=== PATIENT | male | born 1945 | race Caucasian/White ===

== ENCOUNTER 2024-03-12 16:28 | Inpatient (IN) | payer MEDICARE, BC, SELFPAY ==
[2024-03-11 22:39] VITALS: BP 126/98
--- NOTE | 2024-03-11 23:09 | ED.GENMED ---
History of Present Illness
General
Chief Complaint: Fall
Time Seen by Provider: 03/11/24 23:02
Travel History
Have you had any contact with someone who has COVID-19?: No
Do you have any symptoms of coronavirus? Fever > 100 degrees, chills, cough, shortness of breath, sore throat, loss of taste or smell, muscle aches, or headache?: No
History of Present Illness
History of Present Illness:
78 yo male w/ hx of IDDM presents to the Emergency Department for evaluation of L hip/groin pain after a fall. States that he tripped on the curb and fell, doesn't recall exactly the mechanics of the fall. Denies head strike/LOC. Not on OAC or
antiplatelets. Not able to bear weight on the L lower extremity
Review of Systems
Review of Systems
Allergies reviewed?: Yes
All Other Systems: ROS reviewed and negative except as documented in HPI and ROS
Phy Exam
Physical Exam
Physical Exam:
GEN: Well appearing, NAD, WDWN
HEENT: Oral mucosa moist, no scleral icterus
Cardiac: Regular rate
Lung: No respiratory distress, no tachypnea
MSK: No gross deformity or injuries. No shortening/external rotation of the LLE. No focal tenderness to the pelvis/groin. No crepitus with L hip ROM, which is normal in all cerda. No midline lumbar spine tenderness
Skin: Good color, no pallor or jaundice, no rashes
Neuro: AO x3, moves all extremities freely
Psych: Calm, cooperative
Course
Orders/Labs/Results
Orders:
Orders
03/11/24 23:08
Acetaminophen [Tylenol] 650 mg PO NOW STA
CR Hip - LT w/wo Pel 2-3 Vw* Urgent
Comment:
Reason For Exam: fall L hip pain
Include a pelvis x-ray?: Yes
03/12/24 00:17
CT Pelvis W/o Iv Contrast Urgent
Comment:
Reason For Exam: fall, L hip pain, neg XR
03/12/24 00:22
Ketorolac [Toradol] 30 mg IM NOW STA
03/12/24 01:50
Complete Blood Count/With Diff Urgent
Comprehensive Metabolic Panel Urgent
Vital Signs
Initial and Last Documented VS:
Initial Vital Signs
Temp Pulse Resp BP Pulse Ox
97.9 F 90 24 126/98 94
03/11/24 22:39 03/11/24 22:39 03/11/24 22:39 03/11/24 22:39 03/11/24 22:39
Last Documented Vital Signs
Temp Pulse Resp BP Pulse Ox
98.0 F 80 24 114/57 97
03/12/24 02:18 03/12/24 02:18 03/11/24 22:39 03/12/24 02:18 03/12/24 02:18
MDM/Problems Addressed
MDM/Problems Addressed:
Initial x-ray unremarkable, no evidence for hip fracture. The patient was unable to ambulate despite being given analgesics and was thus sent for CT scan which shows a suspicion for a left superior pubic rami fracture extending toward the left
acetabulum. Patient remains unable to tolerate the pain and unable to ambulate, given his advanced age will admit to the hospitalist service for orthopedic consultation and further management
*Critical Care Note
Total Time (30-74mins, 75-104mins- exclusive of procedures): Not Applicable
Update Note
Update Note:
0152: CT report reviewed, suspicion for a minor non displaced L acetabular fx extending into the superior pubic rami. Pt reassessed, pain has improved however still unable to bear weight. Will plan to admit to hospitalist for pain control/SNF. TT
message sent to Ortho skin lifter bacon, anticipate this injury will require LLE NWB
ED Attending Note
-
Portions of this chart may have been created with voice recognition software.� Occasional wrong word or��sound alike� substitutions may have occurred due to the inherent limitations of voice recognition software.
Discharge Plan
Departure
Patient Disposition: Admit
Date of Disposition: 03/12/24
Time of Disposition: 02:26
Admit to: Med/Surg
Presentation/result/management discussed w/ accepting MD/DO: Hospitalist
Discharge Problem:
Closed fracture of left superior pubic ramus
Prescriptions:
No Action
pioglitazone [Actos] 15 mg Tablet
15 mg PO DAILY
atorvastatin 80 mg Tablet
80 mg PO QPM
donepezil 10 mg Tablet
10 mg PO QPM
hydroxyzine HCl 25 mg Tablet
25 mg PO PRN PRN (Reason: unknown)
Rx Instructions:
Patient states he does not know why he takes this as needed. Per med lisst either takes 10 or 25 mg
oxybutynin chloride 5 mg Tablet
5 mg PO PRN PRN (Reason: urinary tract antispasmodics)
folic acid 800 mcg Tablet
800 mcg PO QPM
insulin asp prt-insulin aspart 100 unit/mL (70-30) Insulin Pen
30 unit SC BID
bupropion HCl [Wellbutrin XL] 150 mg Tablet Extended Release 24 Hr
150 mg PO DAILY
cholecalciferol (vitamin D3) [Vitamin D3] 50 mcg (2,000 unit) Tablet
2,000 unit PO DAILY
lurasidone [Latuda] 40 mg Tablet
40 mg PO DAILY
aspirin 81 mg Capsule
81 mg PO QPM
calcium 333 mg
333 mg PO DAILY
carbidopa-levodopa 37.5 mg
37.5 mg PO BID
venlafaxine 75 mg
75 mg PO DAILY
Referrals:
UNKNOWN - PT DOES,NOT KNOW [Family Provider] -
Interventions
Interventions:
*Risk Screen - Suicide Last Done: 03/11/24 22:39
*General Assessment Last Done: 03/12/24 00:47
*Neglect/Abuse Screening Last Done: 03/11/24 22:39
ED- Fall Risk Assessment Last Done: 03/12/24 02:37
*ED COVID-19 Vaccine History Last Done: 03/12/24 00:47
ED-Musculoskeletal Assessment Last Done: 03/11/24 23:47
ED- Neurological Assessment Last Done: 03/11/24 23:47
Discharge Date and Time
Print Language: LAO
[2024-03-11] MEDS: TYLENOL 650 MG PO (23:27)
[2024-03-12] VITALS (14 sets, daily range): BP systolic 114–155; BP diastolic 57–90; PULSE 63–100; O2SAT 92–97; BMI 23.8; BMI 22.2
[2024-03-12] MEDS: TORADOL 30 MG IM (00:45)
[2024-03-12 02:43] LABS: % Basophils 0.4 % (0-2); % Immature Granulocytes 0.5 % (0-0.5); % Lymphocytes 18.2 % (20.5-51.1); % Monocytes 7.9 % (1.7-9.3); Absolute Eosinophils 0.1 10^3/uL (0-0.7); Absolute Immature Granulocytes 0.1 10^3/uL (0-0.05); Absolute Lymphocytes 1.7 10^3/uL (1.2-3.4); Absolute Monocytes 0.7 10^3/uL (0.1-0.6); Absolute Neutrophils 6.6 10^3/uL (1.4-6.5); Hematocrit 41.3 % (39.0-52.0); Hemoglobin 14.4 g/dL (13.0-18.0); Mean Corp Hgb Conc. 34.9 g/dL (33.0-37.0); Mean Corpuscular Hgb 28.3 pg (27.0-31.0); Mean Corpuscular Volume 81.3 fL (80.0-94.0); Mean Platelet Volume 9.9 fL (7.4-10.4); Nucleated Red Blood Cells % 0 % (-); Platelet Count 250 10^3/uL (130-400); Red Blood Cell Count 5.08 10^6/uL (4.70-6.10); Red Cell Dist. Width 13.7 % (11.5-14.5); White Blood Cell Count 9.2 10^3/uL (4.8-10.8)
--- NOTE | 2024-03-12 03:00 | EDRN ---
Report received, patient resting comfortably, waiting on admission
[2024-03-12 03:06] LABS: ALT (SGPT) 17 U/L (0-50); AST (SGOT) 19 U/L (17-59); Alkaline Phosphatase 131 U/L (38-126); Blood Urea Nitrogen 24 mg/dl (9-20); Calcium 9.6 mg/dl (8.4-10.2); Carbon Dioxide 27 mmol/L (22-30); Chloride 100 mmol/L (98-107); Estimated Creatinine Clearance 45 ml/min; Glucose 222 mg/dl (70-99); Potassium 4.2 mmol/L (3.5-5.1); Sodium 135 mmol/L (135-145); Total Bilirubin 0.4 mg/dl (0.2-1.3); Total Protein 6.3 g/dl (6.3-8.2); eGFR 51.77
--- NOTE | 2024-03-12 03:30 | EDRN ---
Patient asking about status of admission, informed we are just waiting on the hospitalist to come and admit, call liriano in reach, curtain closed per patient request.
--- NOTE | 2024-03-12 04:30 | EDRN ---
Dr. Madsen at bedside working on admission
--- NOTE | 2024-03-12 04:41 | HPS.HSE ---
Family Physician
-
Family Physician: NOT KNOW UNKNOWN - PT DOES
Chief Complaint
-
L Hip Pain s/p Fall
History of Present Illness
Patient is a 78y M with PMH significant for ASCVD, DM-II and Parkinsonism who presents to ED complaining of left hip pain s/p fall today. Patient states that he was stepping down off of a curb and 'the next thing I knew I was on the ground'. He
denies any prodrome of dizziness, lightheadedness, etc. He denies any head injury or LOC; however, he cannot recall the actual mechanism of the fall or immediate details. Patient believes that he fell onto his R side; however, his primary
complaint is of L groin pain radiating into the medial thigh.
Patient denies any chest pain, dyspnea, fevers / chills or other current complaints.
Medical History
Past Medical History
Past Medical History: Reports Other
Additional Past Medical History:
ASCVD
DM-II
Parkinsonism
Mild Dementia
Anxiety / Depression
Past Surgical History: Reports Other
Additional Past Surgical History:
Right TSA
Skin Cancer Excision
Skin Grafting (R Forearm)
Social History
Tobacco: Former Smoker (Quit smoking 20 years ago. Approx 50+ pack years total use.)
Alcohol: Former (Also quit approx 20 years ago.)
Drug: None
Living: With Family
Family History
Family History: Not pertinent
Allergies / Home Medications
Allergies reflects when Allergies were last updated in [facility].
Home Medications with original date entered in [facility]
Allergy/Medication List:
Allergies
Allergy/AdvReac Type Severity Reaction Status Date / Time
bee venom protein (honey bee) Allergy Unknown Verified 03/11/24 22:42
Home Medications
aspirin 81 mg capsule 81 mg PO QPM 03/12/24
atorvastatin 80 mg tablet 80 mg PO QPM 03/12/24
bupropion HCl 150 mg 24 hr tablet, extended release (Wellbutrin XL) 150 mg PO DAILY 03/12/24
calcium 333 mg PO DAILY 03/12/24
carbidopa-levodopa 37.5 mg PO BID 03/12/24
cholecalciferol (vitamin D3) 50 mcg (2,000 unit) tablet (Vitamin D3) 2,000 unit PO DAILY 03/12/24
donepezil 10 mg tablet 10 mg PO QPM 03/12/24
folic acid 800 mcg tablet 800 mcg PO QPM 03/12/24
hydroxyzine HCl 25 mg tablet 25 mg PO PRN PRN unknown 03/12/24
insulin aspar prot-insulin aspart 100 unit/mL (70-30) subcutaneous pen 30 unit SC BID 03/12/24
lurasidone 40 mg tablet (Latuda) 40 mg PO DAILY 03/12/24
oxybutynin chloride 5 mg tablet 5 mg PO PRN PRN urinary tract antispasmodics 03/12/24
pioglitazone 15 mg tablet (Actos) 15 mg PO DAILY 03/12/24
venlafaxine 75 mg PO DAILY 03/12/24
Review of Systems
-
History Source: Patient
A 12 point ROS was completed and negative except as noted: Yes
Constitutional: Denies Fever or Chills
Respiratory: Denies Cough or Trouble Breathing
Cardiac: Denies Chest Pain or Palpitations
Abdomen/GI: Denies Abdominal Pain, Nausea, Vomiting or Diarrhea
: Denies Dysuria or Frequency
Musculoskeletal: Reports Joint Pain; Denies Edema
Neurological: Denies Dizzy or Headache
Psych: Denies Depression or Anxiety
Physical Exam
Vital Signs
Vital Signs
Temp Pulse Resp BP Pulse Ox
98.0 F 80 24 114/57 97
03/12/24 02:18 03/12/24 02:18 03/11/24 22:39 03/12/24 02:18 03/12/24 02:18
Physical Exam
General: Other (78y M in no acute distress.)
HEENT: Moist mucous membranes and PERRLA
Respiratory: Clear; No Wheezes, Rales or Rhonchi
Cardiac: S1/S2 and Regular Rhythm; No Murmur
GI: Soft, Non Tender, Non Distended and Normal Bowel Sounds
Musculoskeletal: No Clubbing, No Cyanosis, No Edema and Other (Tenderness L groin. Mild pain with ROM at the R hip.)
Neuro: Awake, Alert and Nonfocal/grossly intact
Laboratory Results
-
03/12/24 02:20
03/12/24 02:20
Laboratory Results
Total Bilirubin 0.4 mg/dl (0.2-1.3) 03/12/24 02:20
AST 19 U/L (17-59) 03/12/24 02:20
ALT 17 U/L (0-50) 03/12/24 02:20
Alkaline Phosphatase 131 U/L (38-126) H 03/12/24 02:20
Impression/Plan
-
A/P: Patient is a 78y M with PMH significant for Parkinsonism and DM-II who presents to ED complaining of L groin pain s/p fall.
Left Hip Pain
Possible Pelvic Fracture
- Observe overnight for further evaluation and treatment.
- X-rays unremarkable.
- CT done with questionable area of fracture in the superior pubic rami with possible involvement of the acetabulum?
- Await formal read from local Radiology.
- Ortho evaluation for their opinion.
- PT / OT evals when OK with Ortho.
- Pain control / supportive care.
Fall
- Likely a mechanical fall due to Parkinsonism / baseline gait dysfunction; however, some concern over patient inability to recall mechanism.
- Monitor on telemetry overnight for any arrhythmia.
- PT / OT as noted above.
- Increased risk for additional falls with limited weight bearing.
Parkinsonism
- Continue current Sinemet dosing without changes.
ASCVD
- Stable. No chest pain / dyspnea.
- Continue current CV med regimen including ASA, statin, etc.
DM-II
- Stable. Continue 70/30 insulin at somewhat decreased dose - adjust as needed.
- Hold oral hypoglycemic agents acutely.
- Follow glucose and cover with SSI as needed.
- Update A1C.
Anxiety / Depression
Mild Dementia
- Stable. Continue current medications.
DVT Prophylaxis: SCDs
Code Status: Full
--- NOTE | 2024-03-12 05:58 | EDRN ---
Updated patient on bed status and collected morning blood work, patient reports pain level is ok and not needing any medications, provided with water,call liriano in reach, will continue to monitor
[2024-03-12 06:04] LABS: Hematocrit 40.4 % (39.0-52.0); Hemoglobin 14.1 g/dL (13.0-18.0); Mean Corp Hgb Conc. 34.9 g/dL (33.0-37.0); Mean Corpuscular Volume 80.3 fL (80.0-94.0); Mean Platelet Volume 9.4 fL (7.4-10.4); Platelet Count 225 10^3/uL (130-400); Red Blood Cell Count 5.03 10^6/uL (4.70-6.10); Red Cell Dist. Width 13.6 % (11.5-14.5); White Blood Cell Count 7.1 10^3/uL (4.8-10.8)
[2024-03-12 06:36] LABS: Blood Urea Nitrogen 26 mg/dl (9-20); Calcium 9.6 mg/dl (8.4-10.2); Carbon Dioxide 22 mmol/L (22-30); Chloride 103 mmol/L (98-107); Estimated Creatinine Clearance 42 ml/min; Glucose 173 mg/dl (70-99); Potassium 4.2 mmol/L (3.5-5.1); Sodium 134 mmol/L (135-145); eGFR 47.65
[2024-03-12 09:14] LABS: Glucose - Point of Care 186 mg/dl (70-99)
[2024-03-12] MEDS: NOVOLOG MIX 70/30 FLEXPEN SC (09:19)
[2024-03-12] MEDS: NOVOLOG FLEXPEN-LOW RESISTANCE SC (09:21)
[2024-03-12] MEDS: LATUDA 40 MG PO (09:22)
[2024-03-12] MEDS: WELLBUTRIN XL (24 hour extended release) 150 MG PO (09:25)
--- NOTE | 2024-03-12 09:30 | W.PN.HOSP.TC ---
Today's Communication/Plan
-
Discharge to short-term rehab when bed available
Assessment / Plan
Assessment / Plan
HPI: 78y M with PMH significant for ASCVD, DM-II and Parkinsonism who presents to ED complaining of left hip pain s/p fall today. Patient states that he was stepping down off of a curb and 'the next thing I knew I was on the ground'. He denies
any prodrome of dizziness, lightheadedness, etc. He denies any head injury or LOC; however, he cannot recall the actual mechanism of the fall or immediate details. Patient believes that he fell onto his R side; however, his primary complaint is of
L groin pain radiating into the medial thigh.
Left Hip Pain
Possible Pelvic Fracture
- CT shows Possible nondisplaced fracture of the lateral aspect of the left superior pubic ramus extending into the anterior column of the left acetabulum'
- Appreciate orthopedic surgery input, recommend conservative management with toe touch weight bearing to LLE, follow-up in 4 weeks for repeat imaging
- Tylenol 1 g 3 times daily, PT recommend short-term rehab
Fall
- Likely a mechanical fall due to Parkinsonism / baseline gait dysfunction; however, some concern over patient inability to recall mechanism.
- Orthostatic vital signs negative
Parkinsonism
- Continue current Sinemet dosing without changes.
Stage III chronic kidney disease
-Trend creatinine
ASCVD
- Stable. No chest pain / dyspnea.
- Continue current CV med regimen including ASA, statin, etc.
DM-II
- Stable. Continue 70/30 insulin at somewhat decreased dose - adjust as needed.
- Follow glucose and cover with SSI as needed.
- A1C 9.5
Anxiety / Depression
Mild Dementia
- Stable. Continue current medications.
DVT Prophylaxis: Subcu Lovenox
Code Status: Full
Total time spent to see the patient on the floor, examine the patient, review data and lab results, discuss treatment plan with patient, nursing staff around 35 minutes.
Physical Exam
General: No acute distress
HEENT: Normocephalic, Atraumatic, EOMI, MMM
Respiratory: Clear to Auscultation bilaterally
Cardiac: Normal S1/S2, Regular Rate and Rhythm
GI: Soft, Nontender, Nondistended, Normal Bowel Sounds
Msk: Left pelvis is tender to palpation
Extremities: No Clubbing, Cyanosis, or Edema
Neuro: Nonfocal/Grossly Intact
Psych: Pleasantly forgetful
Derm: No Visible lesions
Anticipated Discharge: 24 - 48 hours
Subjective/Interval History
-
Date of Service: March 12, 2024
Patient denies pain at rest. Does report pain with palpation or movement. No fever, no vomiting.
Objective Data
-
Labs:
Laboratory Results
03/12/24 03/12/24
02:20 05:48
WBC 9.2 7.1
Hgb 14.4 14.1
Hct 41.3 40.4
Plt Count 250 225
Sodium 135 134 L
Potassium 4.2 4.2
Chloride 100 103
Carbon Dioxide 27 22
BUN 24 H 26 H
Creatinine 1.4 H 1.5 H
Glucose 222 H 173 H
Calcium 9.6 9.6
Total Bilirubin 0.4
AST 19
ALT 17
Alkaline Phosphatase 131 H
Vital Signs:
Vital Signs
Temp Pulse Resp BP Pulse Ox
98.1 F 78 17 142/63 97
03/12/24 08:20 03/12/24 08:20 03/12/24 08:20 03/12/24 08:20 03/12/24 08:20
[2024-03-12 10:16] LABS: Glycohemoglobin (HgbA1c) 9.5 % (4.0-5.6)
[2024-03-12] MEDS: TYLENOL 1000 MG PO ×3 (10:55→21:02)
[2024-03-12] MEDS: EFFEXOR XR 75 MG PO (10:57)
--- NOTE | 2024-03-12 11:13 | PTCARENOTE ---
RN spoke with pt's over the phone and completed admission, as patient has Parkinsons and is forgetful. RN completed EKG per order which showed NSR with a right bundle branch block. Ortho already saw pt- they will not be doing any surgery. Pt
awaiting pt/ot consult. Tylenol given for pain.
--- NOTE | 2024-03-12 11:33 | CON.ORTHO ---
Addendum entered and electronically signed by Eliel Spaulding MD 03/13/24 13:29:
I evaluated the patient at bedside and agree with the above note. 78-year-old male with left hip and groin pain after sustaining a trip and fall. He had x-rays and CT which show signs of a nondisplaced fracture of the superior pubic ramus adjacent
to the intercondylar acetabulum. Patient has pain with active hip elevation and weightbearing. I reviewed the imaging and discussed treatment options with the patient. We discussed touchdown weightbearing on the left lower extremity for 4 weeks.
He will follow-up in 4 weeks with repeat x-rays and at that time may advance to weightbearing as tolerated if he is improving clinically and without radiographic change.
Original Note:
Consultation
-
Date/Time Consultation Requested: 03/11/2024; time unknown
Date/Time Consultation Performed: 03/12/2024; 0800
Requesting Provider: Dr. Curtis Madsen
Performing Provider: Deysi Bhandari PA-C for Dr. Eliel Spaulding
Reason for Consultation: Left pelvic fracture
Consultation - Orthopedics
History
Mr. Houston is a 78y M with PMH significant for ASCVD, DM-II and Parkinsonism seen today for his left hip. He reports he was stepping off a curb yesterday when he lost his balance and fell onto his right side. He reports onset of pain in the left
groin with radiating pain in to his left thigh. He presented to ED where x-rays and CT scan revealed a subtle, nondisplaced fracture of his pelvis. He is resting comfortably in bed this morning, but does endorse pain with movement of the hip. He
reports he typically ambulates with a walker, but was not utilizing one yesterday. He lives at home with his .
Allergies / Home Medications
Allergy/AdvReac Type Severity Reaction Status Date / Time
bee venom protein (honey bee) Allergy Unknown Verified 03/11/24 22:42
�Medication �Instructions �Recorded
aspirin 81 mg capsule 81 mg PO QPM 03/12/24
atorvastatin 80 mg tablet 80 mg PO QPM 03/12/24
bupropion HCl 150 mg 24 hr tablet, 150 mg PO DAILY 03/12/24
extended release (Wellbutrin XL)
calcium 333 mg PO DAILY 03/12/24
carbidopa-levodopa 37.5 mg PO BID 03/12/24
cholecalciferol (vitamin D3) 50 2,000 unit PO DAILY 03/12/24
mcg (2,000 unit) tablet (Vitamin
D3)
donepezil 10 mg tablet 10 mg PO QPM 03/12/24
folic acid 800 mcg tablet 800 mcg PO QPM 03/12/24
hydroxyzine HCl 25 mg tablet 25 mg PO PRN PRN unknown 03/12/24
insulin aspar prot-insulin aspart 30 unit SC BID 03/12/24
100 unit/mL (70-30) subcutaneous
pen
lurasidone 40 mg tablet (Latuda) 40 mg PO DAILY 03/12/24
oxybutynin chloride 5 mg tablet 5 mg PO PRN PRN urinary tract 03/12/24
antispasmodics
pioglitazone 15 mg tablet (Actos) 15 mg PO DAILY 03/12/24
venlafaxine 75 mg PO DAILY 03/12/24
Vital Signs / Lab Results
Temp Pulse Resp BP Pulse Ox
98.1 F 77 16 144/71 95
03/12/24 11:28 03/12/24 11:28 03/12/24 11:28 03/12/24 11:28 03/12/24 11:28
03/12/24 05:48
03/12/24 05:48
IMPRESSION:
Possible nondisplaced fracture of the lateral aspect of the left superior pubic ramus extending into the anterior column of the left acetabulum.
Directed exam of the left hip reveals no obvious erythema, ecchymosis or lesions. Mild tenderness over the anterior hip. Discomfort elicited with ROM of the left hip. Thigh soft and compressible. Calf soft and nontender. neurovascularly intact
distally.
Assessment / Plan
Left superior pubic ramus/anterior acetabular wall fracture
--Unfortunately, it does appear Alvin sustained a subtle, nondisplaced fracture of his pelvis. Thankfully, this can be managed non-operatively. Recommend toe touch weight bearing to LLE. We appreciate the assistance of PT/OT while patient admitted.
Pain control per primary. Recommend outpatient follow up in 4 weeks for repeat imaging, sooner if difficulty. Orthopedics will sign off for now. Please reach out with any additional orthopedic questions or concerns.
[2024-03-12 13:02] LABS: Glucose - Point of Care 343 mg/dl (70-99)
[2024-03-12] MEDS: NOVOLOG FLEXPEN-LOW RESISTANCE 4 UNITS SC ×2 (13:02→16:48)
[2024-03-12] MEDS: ULTRAM 25 MG PO (13:09)
--- NOTE | 2024-03-12 15:17 | CM ---
Alert awake forgetful patient who lives with his Alyssa who lives in a [address] condo with 1 step to enter and bed and bathroom on first floor. He is assisted in all activities of daily living.Observation letter given explained pt declined to
sign.Copy on chart.Will need PT OT for discharge plan.
No VN hx /SNF history
Pharmacy [facility]
PCP DR Carrillo
PLAN Will need PT OT for discharge plan.
[2024-03-12 16:48] LABS: Glucose - Point of Care 308 mg/dl (70-99)
[2024-03-12] MEDS: FOLVITE 0.800000000000000044 MG PO (17:08)
[2024-03-12] MEDS: LIPITOR 80 MG PO (17:08)
[2024-03-12] MEDS: ARICEPT 10 MG PO (17:08)
[2024-03-12] MEDS: LOVENOX 40 MG SC (17:09)
[2024-03-12] MEDS: ASPIR LOW (ENTERIC COATED) 81 MG PO (17:09)
[2024-03-12] MEDS: SINEMET 25-100 1.5 TABLET PO (21:01)
[2024-03-12] MEDS: SENOKOT 17.1999999999999993 MG PO (21:02)
[2024-03-12] MEDS: NOVOLOG MIX 70/30 FLEXPEN 20 UNITS SC (21:17)
[2024-03-12 21:18] LABS: Glucose - Point of Care 251 mg/dl (70-99)
[2024-03-13] VITALS (8 sets, daily range): BP systolic 121–153; BP diastolic 69–79; PULSE 85–94; O2SAT 93–95
[2024-03-13 07:02] LABS: Glucose - Point of Care 196 mg/dl (70-99)
--- NOTE | 2024-03-13 09:02 | W.PN.HOSP.TC ---
Today's Communication/Plan
-
Discharge to short-term rehab when bed available
Assessment / Plan
Assessment / Plan
HPI: 78y M with PMH significant for ASCVD, DM-II and Parkinsonism who presents to ED complaining of left hip pain s/p fall today. Patient states that he was stepping down off of a curb and 'the next thing I knew I was on the ground'. He denies
any prodrome of dizziness, lightheadedness, etc. He denies any head injury or LOC; however, he cannot recall the actual mechanism of the fall or immediate details. Patient believes that he fell onto his R side; however, his primary complaint is of
L groin pain radiating into the medial thigh.
Left Hip Pain
Possible Pelvic Fracture
- CT shows Possible nondisplaced fracture of the lateral aspect of the left superior pubic ramus extending into the anterior column of the left acetabulum'
- Appreciate orthopedic surgery input, recommend conservative management with toe touch weight bearing to LLE, follow-up in 4 weeks for repeat imaging
- Tylenol 1 g 3 times daily, medically stable for discharge to short-term rehab when bed available
Fall
- Likely a mechanical fall due to Parkinsonism / baseline gait dysfunction; however, some concern over patient inability to recall mechanism.
- Orthostatic vital signs negative
Parkinsonism
- Continue current Sinemet dosing without changes.
Stage III chronic kidney disease
-Trend creatinine
ASCVD
- Stable. No chest pain / dyspnea.
- Continue current CV med regimen including ASA, statin, etc.
DM-II
- Stable. Continue 70/30 insulin at somewhat decreased dose - adjust as needed.
- Follow glucose and cover with SSI as needed.
- A1C 9.5
Anxiety / Depression
Mild Dementia
- Stable. Continue current medications.
DVT Prophylaxis: Subcu Lovenox
Code Status: Full
Total time spent to see the patient on the floor, examine the patient, review data and lab results, discuss treatment plan with patient, nursing staff around 35 minutes.
Physical Exam
General: No acute distress
HEENT: Normocephalic, Atraumatic, EOMI, MMM
Respiratory: Clear to Auscultation bilaterally
Cardiac: Normal S1/S2, Regular Rate and Rhythm
GI: Soft, Nontender, Nondistended, Normal Bowel Sounds
Msk: Left pelvis is tender to palpation
Extremities: No Clubbing, Cyanosis, or Edema
Neuro: Nonfocal/Grossly Intact
Psych: Pleasantly forgetful
Derm: No Visible lesions
Anticipated Discharge: Within 24 hours
Subjective/Interval History
-
Date of Service: March 13, 2024
Patient does complain of left pelvic pain with ambulation. No pain at rest. No fever, no vomiting.
Objective Data
-
Vital Signs:
Vital Signs
Temp Pulse Resp BP Pulse Ox
97.9 F 86 16 153/69 93
03/13/24 07:11 03/13/24 07:11 03/13/24 07:11 03/13/24 07:11 03/13/24 07:11
I&O
03/12/24 03/13/24 03/14/24
06:59 06:59 06:59
Intake Total 960 / 960
Output Total 900 / 900
Balance 60 / 60
[2024-03-13] MEDS: NOVOLOG MIX 70/30 FLEXPEN 20 UNITS SC ×2 (09:43→20:09)
[2024-03-13] MEDS: NOVOLOG FLEXPEN-LOW RESISTANCE 1 UNITS SC (09:43)
[2024-03-13] MEDS: EFFEXOR XR 75 MG PO (09:47)
[2024-03-13] MEDS: SINEMET 25-100 1.5 TABLET PO ×2 (09:47→20:09)
[2024-03-13] MEDS: TYLENOL 1000 MG PO ×3 (09:47→20:09)
[2024-03-13] MEDS: WELLBUTRIN XL (24 hour extended release) 150 MG PO (09:48)
[2024-03-13] MEDS: LATUDA 40 MG PO (09:48)
[2024-03-13 12:16] LABS: Glucose - Point of Care 232 mg/dl (70-99)
[2024-03-13] MEDS: NOVOLOG FLEXPEN-LOW RESISTANCE 2 UNITS SC (13:11)
--- NOTE | 2024-03-13 15:44 | CM ---
PT OT said SNF.
Spoke with pt and Alyssa [phone] .[facility].
IMM given explained and signed on chart.
PLAN To SNF after located
[2024-03-13 17:53] LABS: Glucose - Point of Care 279 mg/dl (70-99)
[2024-03-13] MEDS: ASPIR LOW (ENTERIC COATED) 81 MG PO (18:01)
[2024-03-13] MEDS: FOLVITE 0.800000000000000044 MG PO (18:01)
[2024-03-13] MEDS: ARICEPT 10 MG PO (18:02)
[2024-03-13] MEDS: LIPITOR 80 MG PO (18:02)
[2024-03-13] MEDS: LOVENOX 40 MG SC (18:02)
[2024-03-13] MEDS: NOVOLOG FLEXPEN-LOW RESISTANCE 3 UNITS SC (18:03)
[2024-03-13] MEDS: SENOKOT PO (20:32)
[2024-03-13 21:23] LABS: Glucose - Point of Care 156 mg/dl (70-99)
--- NOTE | 2024-03-14 03:38 | DOWNTIME ---
There was a [employer] Downtime on 02/07/2024 from 0100 to 02/08/2024 at 0300. Downtime documentation of patient's care, including medication administrations, has been reconciled in the electronic record per guidelines. Refer to the
patient's paper chart under the miscellaneous tab to see printed paper medication records and downtime forms.
[2024-03-14 03:48] VITALS: BP 137/81
[2024-03-14 07:32] LABS: Glucose - Point of Care 183 mg/dl (70-99)
[2024-03-14 07:45] VITALS: BP 133/76
[2024-03-14] MEDS: NOVOLOG FLEXPEN-LOW RESISTANCE 1 UNITS SC ×2 (08:28→17:12)
[2024-03-14] MEDS: TYLENOL 1000 MG PO ×3 (08:33→21:04)
[2024-03-14] MEDS: EFFEXOR XR 75 MG PO (08:33)
[2024-03-14] MEDS: WELLBUTRIN XL (24 hour extended release) 150 MG PO (08:34)
[2024-03-14] MEDS: SINEMET 25-100 1.5 TABLET PO ×2 (08:34→19:46)
[2024-03-14] MEDS: LATUDA 40 MG PO (08:34)
[2024-03-14] MEDS: NOVOLOG MIX 70/30 FLEXPEN 20 UNITS SC ×2 (08:34→19:46)
--- NOTE | 2024-03-14 08:54 | W.PN.HOSP.TC ---
Today's Communication/Plan
-
Discharge to short-term rehab when bed available
Assessment / Plan
Assessment / Plan
HPI: 78y M with PMH significant for ASCVD, DM-II and Parkinsonism who presents to ED complaining of left hip pain s/p fall today. Patient states that he was stepping down off of a curb and 'the next thing I knew I was on the ground'. He denies
any prodrome of dizziness, lightheadedness, etc. He denies any head injury or LOC; however, he cannot recall the actual mechanism of the fall or immediate details. Patient believes that he fell onto his R side; however, his primary complaint is of
L groin pain radiating into the medial thigh.
Left Hip Pain
Possible Pelvic Fracture
- CT shows Possible nondisplaced fracture of the lateral aspect of the left superior pubic ramus extending into the anterior column of the left acetabulum'
- Appreciate orthopedic surgery input, recommend conservative management with toe touch weight bearing to LLE, follow-up in 4 weeks for repeat imaging
- Tylenol 1 g 3 times daily, medically stable for discharge to short-term rehab when bed available
Fall
- Likely a mechanical fall due to Parkinsonism / baseline gait dysfunction; however, some concern over patient inability to recall mechanism.
- Orthostatic vital signs negative
Parkinsonism
- Continue current Sinemet dosing without changes.
Acute kidney injury
� Resolved
ASCVD
- Stable. No chest pain / dyspnea.
- Continue current CV med regimen including ASA, statin, etc.
DM-II
- Stable. Continue 70/30 insulin at somewhat decreased dose - adjust as needed.
- Follow glucose and cover with SSI as needed.
- A1C 9.5
Anxiety / Depression
Mild Dementia
- Stable. Continue current medications.
DVT Prophylaxis: Subcu Lovenox
Code Status: Full
Total time spent to see the patient on the floor, examine the patient, review data and lab results, discuss treatment plan with patient, nursing staff around 35 minutes.
Physical Exam
General: No acute distress
HEENT: Normocephalic, Atraumatic, EOMI, MMM
Respiratory: Clear to Auscultation bilaterally
Cardiac: Normal S1/S2, Regular Rate and Rhythm
GI: Soft, Nontender, Nondistended, Normal Bowel Sounds
Msk: Left pelvis is tender to palpation
Extremities: No Clubbing, Cyanosis, or Edema
Neuro: Nonfocal/Grossly Intact
Psych: Pleasantly forgetful
Derm: No Visible lesions
Anticipated Discharge: Within 24 hours
Subjective/Interval History
-
Date of Service: March 14, 2024
No acute events. Patient denies chest pain, shortness of breath, palpitations.
Objective Data
-
Labs:
Laboratory Results
03/14/24
07:10
Sodium Pending
Potassium Pending
Chloride Pending
Carbon Dioxide Pending
BUN Pending
Creatinine Pending
Glucose Pending
Calcium Pending
Vital Signs:
Vital Signs
Temp Pulse Resp BP Pulse Ox
97.9 F 74 16 137/81 96
03/14/24 03:48 03/14/24 03:48 03/14/24 03:48 03/14/24 03:48 03/14/24 03:48
I&O
03/13/24 03/14/24 03/15/24
06:59 06:59 06:59
Intake Total 960 / 960 2340 / 2340
Output Total 900 / 900 450 / 450
Balance 60 / 60 1890 / 1890
[2024-03-14 08:55] LABS: Blood Urea Nitrogen 15 mg/dl (9-20); Calcium 9.8 mg/dl (8.4-10.2); Carbon Dioxide 24 mmol/L (22-30); Chloride 102 mmol/L (98-107); Estimated Creatinine Clearance 68 ml/min; Glucose 171 mg/dl (70-99); Potassium 4.6 mmol/L (3.5-5.1); Sodium 137 mmol/L (135-145); eGFR > 60.00
[2024-03-14 11:26] VITALS: BP 132/66
[2024-03-14 11:47] LABS: Glucose - Point of Care 240 mg/dl (70-99)
[2024-03-14 12:05] VITALS: BP 133/97; PULSE 84; O2SAT 94
[2024-03-14] MEDS: NOVOLOG FLEXPEN-LOW RESISTANCE 2 UNITS SC (12:08)
--- NOTE | 2024-03-14 14:27 | PTCARENOTE ---
Patient transferred to [facility] for bed availability. Report given to VALDEMAR Maddox. Patient transferred via bed at 1425.
[2024-03-14 14:45] VITALS: BP 115/66
--- NOTE | 2024-03-14 15:06 | PTCARENOTE ---
Received pt [facility] [address]. Pt awake, alert and oriented x2-3 forgetful at times. Pt has no c/o pain VSS 93% on RA. Pt oriented to room, call liriano within reach, bed alarm in place for safety, plan of care ongoing.
[2024-03-14 16:40] LABS: Glucose - Point of Care 181 mg/dl (70-99)
--- NOTE | 2024-03-14 16:46 | CM ---
PT OT said SNF.
Spoke with pt and Alyssa [phone].They requested [facility] SNF at discharge.
Pt also requested an ambulance. Needs Medical nec form.
Mandie at [facility] said she can accept tomorrow.
Junior at [address] [facility] [address]
report [phone]
fax [phone]
PLAN To [facility]
[2024-03-14] MEDS: LIPITOR 80 MG PO (17:10)
[2024-03-14] MEDS: LOVENOX 40 MG SC (17:10)
[2024-03-14] MEDS: FOLVITE 0.800000000000000044 MG PO (17:11)
[2024-03-14] MEDS: ASPIR LOW (ENTERIC COATED) 81 MG PO (17:12)
[2024-03-14] MEDS: ARICEPT 10 MG PO (17:12)
[2024-03-14 19:46] LABS: Glucose - Point of Care 207 mg/dl (70-99)
[2024-03-14] MEDS: SENOKOT PO (21:04)
[2024-03-14 21:22] LABS: Glucose - Point of Care 126 mg/dl (70-99)
[2024-03-14 23:35] VITALS: BP 127/66
[2024-03-15 07:29] VITALS: BP 106/76
[2024-03-15 07:56] LABS: Glucose - Point of Care 67 mg/dl (70-99)
[2024-03-15 08:13] LABS: Blood Urea Nitrogen 16 mg/dl (9-20); Calcium 9.9 mg/dl (8.4-10.2); Carbon Dioxide 22 mmol/L (22-30); Chloride 103 mmol/L (98-107); Estimated Creatinine Clearance 62 ml/min; Glucose 58 mg/dl (70-99); Potassium 3.7 mmol/L (3.5-5.1); Sodium 138 mmol/L (135-145); eGFR > 60.00
[2024-03-15 08:14] LABS: Glucose - Point of Care 97 mg/dl (70-99)
[2024-03-15] MEDS: NOVOLOG FLEXPEN-LOW RESISTANCE SC (08:25)
[2024-03-15] MEDS: LATUDA 40 MG PO (08:27)
[2024-03-15] MEDS: TYLENOL 1000 MG PO (08:27)
[2024-03-15] MEDS: WELLBUTRIN XL (24 hour extended release) 150 MG PO (08:28)
[2024-03-15] MEDS: EFFEXOR XR 75 MG PO (08:28)
--- NOTE | 2024-03-15 08:29 | W.PN.HOSP.TC ---
Today's Communication/Plan
-
Discharge to short-term rehab today
Assessment / Plan
Assessment / Plan
HPI: 78y M with PMH significant for ASCVD, DM-II and Parkinsonism who presents to ED complaining of left hip pain s/p fall today. Patient states that he was stepping down off of a curb and 'the next thing I knew I was on the ground'. He denies
any prodrome of dizziness, lightheadedness, etc. He denies any head injury or LOC; however, he cannot recall the actual mechanism of the fall or immediate details. Patient believes that he fell onto his R side; however, his primary complaint is of
L groin pain radiating into the medial thigh.
Left Hip Pain
Possible Pelvic Fracture
- CT shows Possible nondisplaced fracture of the lateral aspect of the left superior pubic ramus extending into the anterior column of the left acetabulum'
- Appreciate orthopedic surgery input, recommend conservative management with toe touch weight bearing to LLE, follow-up in 4 weeks for repeat imaging
- Tylenol 1 g 3 times daily, medically stable for discharge to short-term rehab when bed available
Fall
- Likely a mechanical fall due to Parkinsonism / baseline gait dysfunction; however, some concern over patient inability to recall mechanism.
- Orthostatic vital signs negative
Parkinsonism
- Continue current Sinemet dosing without changes.
Acute kidney injury
� Resolved
ASCVD
- Stable. No chest pain / dyspnea.
- Continue current CV med regimen including ASA, statin, etc.
DM-II
- Stable. Decrease 70/30 insulin to 15 units bid (from 20 bid) due to hypoglycemia.
- Follow glucose and cover with SSI as needed.
- A1C 9.5
Anxiety / Depression
Mild Dementia
- Stable. Continue current medications.
DVT Prophylaxis: Subcu Lovenox
Code Status: Full
Physical Exam
General: No acute distress
HEENT: Normocephalic, Atraumatic, EOMI, MMM
Respiratory: Clear to Auscultation bilaterally
Cardiac: Normal S1/S2, Regular Rate and Rhythm
GI: Soft, Nontender, Nondistended, Normal Bowel Sounds
Msk: Left pelvis is tender to palpation
Extremities: No Clubbing, Cyanosis, or Edema
Neuro: Nonfocal/Grossly Intact
Psych: Pleasantly forgetful
Derm: No Visible lesions
Anticipated Discharge: Today
Subjective/Interval History
-
Date of Service: March 15, 2024
Patient hypoglycemic this morning. Denies symptoms, states he was sleeping. No fever, no vomiting.
Objective Data
-
Labs:
Laboratory Results
03/15/24
06:31
Sodium 138
Potassium 3.7
Chloride 103
Carbon Dioxide 22
BUN 16
Creatinine 1.0
Glucose 58 L
Calcium 9.9
Vital Signs:
Vital Signs
Temp Pulse Resp BP Pulse Ox
97.6 F 85 18 127/66 92
03/14/24 23:35 03/14/24 23:35 03/14/24 23:35 03/14/24 23:35 03/14/24 23:35
I&O
03/14/24 03/15/24 03/16/24
06:59 06:59 06:59
Intake Total 2340 / 2340 670 / 670
Output Total 450 / 450 800 / 800
Balance 189 / 189 -130 / -130
[2024-03-15] MEDS: SINEMET 25-100 1.5 TABLET PO (08:31)
[2024-03-15] MEDS: NOVOLOG MIX 70/30 FLEXPEN SC (08:31)
--- NOTE | 2024-03-15 11:01 | W.DCSUMMARY ---
Discharge Summary
Discharge Data
Date of Admission: 03/12/24
Date of Discharge: 03/15/24
-
Pending Results: No
Hospital Course
Discharge diagnosis:
Mechanical fall
Left hip pain
Probable left pelvic fracture
Parkinson's disease with mild dementia
Acute kidney injury
Coronary artery disease
Type 2 diabetes
Anxiety/depression
Consults: Orthopedic surgery
CT pelvis:
Possible nondisplaced fracture of the lateral aspect of the left superior pubic ramus extending into the anterior column of the left acetabulum.
Sigmoid diverticulosis.
Bilateral vas deferens calcifications. Is there a history of diabetes?
Hospital course:
78-year-old male with a past medical history of Parkinson disease with mild dementia, coronary artery disease, and type 2 diabetes was admitted for left hip pain due to a probable left pelvic fracture from a mechanical fall.
Patient was seen in conjunction with orthopedic surgery, who recommended conservative management with PT, pain control. Orthopedic surgery recommends toe-touch weightbearing to the left lower extremity.
Patient was seen in conjunction with PT, who recommended short-term rehab. Orthostatic vital signs were negative.
Patient was noted to have acute kidney injury, which resolved with IV fluids.
Patient has type 2 diabetes. He was hypoglycemic in the hospital, and his 70/30 insulin was reduced from 20 units twice a day to 15 units twice a day.
Patient is medically stable for discharge. He needs to follow-up with his primary care doctor 1 week after he leaves rehab. He needs repeat pelvic x-rays in 4 weeks. This can be done with his primary care doctor or orthopedic surgery.
Disposition: Short-term rehab
Discharge planning: Required 37 minutes
Discharge Plan
-
Patient Disposition: [facility]ci/SNF
Discharge Diagnosis/Procedures: Mechanical fall, probable left pelvic fracture, Parkinson's disease, mild dementia, acute kidney injury, coronary artery disease, type 2 diabetes
Condition: Fair
Diet: Diabetic, Carb Controlled
Activity: Other activity
Additional Activity: Left lower extremity toe-touch weightbearing
Blood Work: CBC, CMP on 03/19/24
Activity Restrictions/Additional Instructions:
Your blood sugar in the hospital was low. Your insulin was decreased.
You need repeat x-rays in 4 weeks, can be done with your primary care doctor or orthopedic surgery.
Please follow-up with your primary care doctor 1 week after you leave rehab.
Referrals:
UNKNOWN - PT DOES,NOT KNOW [Family Provider] -
Prescriptions:
New
acetaminophen [Tylenol Extra Strength] 500 mg Tablet
1,000 mg PO TID Qty: 0 0RF
Continued
pioglitazone [Actos] 15 mg Tablet
15 mg PO DAILY
atorvastatin 80 mg Tablet
80 mg PO QPM
donepezil 10 mg Tablet
10 mg PO QPM
hydroxyzine HCl 25 mg Tablet
25 mg PO PRN PRN (Reason: unknown)
Rx Instructions:
Patient states he does not know why he takes this as needed. Per med lisst either takes 10 or 25 mg
oxybutynin chloride 5 mg Tablet
5 mg PO PRN PRN (Reason: urinary tract antispasmodics)
folic acid 800 mcg Tablet
800 mcg PO QPM
bupropion HCl [Wellbutrin XL] 150 mg Tablet Extended Release 24 Hr
150 mg PO DAILY
cholecalciferol (vitamin D3) [Vitamin D3] 50 mcg (2,000 unit) Tablet
2,000 unit PO DAILY
lurasidone [Latuda] 40 mg Tablet
40 mg PO DAILY
aspirin 81 mg Capsule
81 mg PO QPM
calcium 333 mg
333 mg PO DAILY
carbidopa-levodopa 37.5 mg
37.5 mg PO BID
venlafaxine 75 mg
75 mg PO DAILY
Changed
insulin asp prt-insulin aspart 100 unit/mL (70-30) Insulin Pen
15 unit SC BID Qty: 0 0RF
Discharge Orders:
Discharge Patient (As Directed); Ordered 03/15/24
Ordered By: Enzo Reyes
Discharge Date and Time
Discharge Date/Time: 03/15/24 15:14
Print Language: GABONESE
--- NOTE | 2024-03-15 11:48 | CM ---
Md entered order for discharge..
Pt and Alyssa [phone].want [facility] SNF at discharge.
Dale at [facility] has bed today . Requested a Covid test MD and RN aware . Covid ordered.
Pt also requested an ambulance. Needs Medical nec form.
Pt has Medicare.
Jesse at [address] [place] [id number]
report [phone]
fax [phone]
PLAN To [facility] after Covid test
[2024-03-15 12:00] LABS: Glucose - Point of Care 219 mg/dl (70-99)
[2024-03-15] MEDS: NOVOLOG FLEXPEN-MODERATE RESISTANCE 3 UNITS SC (12:04)
[2024-03-15 12:09] LABS: COVID-19 Antigen Negative (Negative)
[2024-03-15 14:46] VITALS: BP 145/82
--- NOTE | 2024-03-15 19:11 | PTCARENOTE ---
attempted to call residential [facility] [phone] with no answer. Did finally get sulaiman of nurse at [phone]. They said they did not want report patient was already admitted, Did inform them that patient is TTWB to LLE and if they wanted more info and they
declined.
== END 2024-03-15 15:14 | DRG 535 ==
LOC: 4 EAST ACU 16:28
PROVIDERS: Physician Assistant; ADMITTING PHYSICIAN Hospitalist; ATTENDING PHYSICIAN Family Medicine; CONSULT PHYSICIAN Orthopaedic Surgery; EMERGENCY PHYSICIAN Emergency Medicine
DX: S32.512A Fracture of superior rim of left pubis, initial encounter for closed fracture (principal); S32.415A Nondisplaced fracture of anterior wall of left acetabulum, initial encounter for closed fracture; F02.A4 Dementia in other diseases classified elsewhere, mild, with anxiety; F02.A3 Dementia in other diseases classified elsewhere, mild, with mood disturbance; N17.9 Acute kidney failure, unspecified; G20.A1 Parkinson's disease without dyskinesia, without mention of fluctuations; I25.10 Atherosclerotic heart disease of native coronary artery without angina pectoris; E11.22 Type 2 diabetes mellitus with diabetic chronic kidney disease; E11.649 Type 2 diabetes mellitus with hypoglycemia without coma; N18.30 Chronic kidney disease, stage 3 unspecified; W01.0XXA Fall on same level from slipping, tripping and stumbling without subsequent striking against object, initial encounter; Z87.891 Personal history of nicotine dependence; Z79.82 Long term (current) use of aspirin; Z79.4 Long term (current) use of insulin; Z79.84 Long term (current) use of oral hypoglycemic drugs; Z79.899 Other long term (current) drug therapy
CPT/HCPCS: 72192; 73502; 80048; 80053; 82962; 83036; 85025; 85027; 87811; 93005; 96372; 97162; 97166; 97530; 97535; 99285